=== PATIENT | female | born 1995 ===

== ENCOUNTER 2020-04-09 21:40 | Emergency (ER) | payer OTHER ==
[~2020-04-09] VITALS: Ht 167.6 cm; Wt 48.5 kg
[2020-04-09] MEDS ORDERED: FLUCONAZOLE150 MG PO (23:24)
== END 2020-04-09 23:54 | disposition home or self-care (01) ==
LOC: ER 21:40
DX: N76.0 Acute vaginitis (principal); B96.89 Other specified bacterial agents as the cause of diseases classified elsewhere